=== PATIENT | male | born 1995 | race Caucasian/White ===

== ENCOUNTER 2018-07-31 19:42 | Emergency (ER) | payer SELFPAY ==
[~2018-07-31] VITALS: Ht 167.6 cm; Wt 82.1 kg
[2018-07-31 19:50] VITALS: BP 137/69
[2018-07-31] MEDS ORDERED: LIDOCAINE 1% 500 MG/50 ML VIAL INJ SCH (20:10)
[2018-07-31] MEDS ORDERED: LIDOCAINE MPF 1% - 5 mL VIAL 15 ML ONE (20:34)
[2018-07-31] MEDS ORDERED: BACITRACIN OINT 500 UNITS/GM PKT TP ONE ×2 (21:15→21:23)
[2018-07-31 21:24] VITALS: BP 135/77
== END 2018-07-31 21:23 | disposition home or self-care (01) ==
LOC: MED 19:42
DX: S61.213A Laceration without foreign body of left middle finger without damage to nail, initial encounter (principal); W54.0XXA Bitten by dog, initial encounter; Y93.89 Activity, other specified; Y92.89 Other specified places as the place of occurrence of the external cause; Y99.8 Other external cause status
CPT/HCPCS: 12002; 99284; J2001